=== PATIENT | female | born 1935 | race Caucasian/White ===

== ENCOUNTER 2016-07-20 15:41 | Inpatient (IN) | payer OTHER ==
[~2016-07-20] VITALS: Ht 160 cm; Wt 84.0 kg
[~2016-07-20 15:41] MED LIST: ALPRAZOLAM0.5 MG PO; ASPIR 8181 M1 PO; ATORVASTATIN CA40 MG; CHILD ASPIRIN81 M1 PO; CIPRO500 MG PO; CIPROFLOXACIN500 M1 PO; CITALOPRAM HBR10 MG PO; CRESTOR10 MG PO; FENOFIBRATE160 M1 PO; GLIPIZIDE10 M1 PO; GLUCOPHAGE500 M1 G-TUBE; HUMULIN N SC; HUMULIN N100 UNIT/2 SC; IRON325 MG PO; KEFLEX500 MG PO; LASIX40 MG PO; LEVEMIR FL100 UNITS/ SQ; LEVEMIR100 UNIT/2 SC; LEVOTHYROXINE125 MCG PO; LIPITOR40 MG PO; LISINOPRIL2.5 MG PO; PRILOSEC20 MG PO; PROAIR HFA8.5 GM IH; SYNTHROID150 MCG PO; TRAZODONE HCL150 MG PO; UNABLE TO OBTAIN; ZAFIRLUKAST20 M1 PO
[2016-07-20 16:40] LABS: HEMATOCRIT 35.2 % (36.0-46.0); MCH 25.6 PG (29.0-34.0); MCHC 32.1 G/DL (30.0-36.0); MCV 79.8 FL (83-99); MEAN PLAT.VOLUME 11.3 uM^3 (9.5-12.4); PLATELET COUNT 216 K/uL (156-360); RBC DIS.WIDTH-CV 15.4 % (11.8-14.6); RBC DIS.WIDTH-SD 43.9 % (39-53); RED BLOOD COUNT 4.41 M/uL (3.80-5.20); WHITE BLOOD COUNT 18.2 K/uL (4.1-10.2)
[2016-07-20 16:46] LABS: CARBON DIOXIDE (BICARBONATE) 24.5 MEQ/L (20-31)
[2016-07-20 16:52] LABS: CHLORIDE 104 mEq/L (99-109); POTASSIUM 3.9 mEq/L (3.7-5.4); SODIUM 137 mEq/L (136-147)
[2016-07-20 16:53] LABS: GLUCOSE 282 mg/dL (70-99)
[2016-07-20 16:55] LABS: ANION GAP 14 MEQ/L (2-14)
[2016-07-20 16:57] LABS: GFR ESTIMATE (CALCULATED) 29 mL/min/
[2016-07-20 16:58] LABS: UREA NITROGEN (BUN) 36 mg/dL (9-23)
[2016-07-20 17:04] LABS: TROP-I INTERPRETATION NEGATIVE; TROPONIN-I 0.01 ng/mL (0.0-0.30)
[2016-07-20] MEDS ORDERED: LISINOPRIL2.5 MG PO (19:41)
[2016-07-20] MEDS ORDERED: KEFLEX500 MG PO (19:41)
[2016-07-20] MEDS ORDERED: HUMULIN N100 UNIT/2 SC (19:42)
[2016-07-20] MEDS ORDERED: LEVO-T125 MCG PO (19:43)
[2016-07-20] MEDS ORDERED: LEVEMIR FL100 UNIT/1 SC (19:43)
[2016-07-20] MEDS ORDERED: LEVOTHYROXINE125 MCG PO (19:44)
[2016-07-20] MEDS ORDERED: ZAFIRLUKAST20 M1 PO (19:44)
[2016-07-20] MEDS ORDERED: PROAIR HFA8.5 GM IH (19:44)
[2016-07-20] MEDS ORDERED: LIPITOR40 MG PO (19:45)
[2016-07-20] MEDS ORDERED: FENOFIBRATE160 M1 PO (19:45)
[2016-07-20] MEDS ORDERED: PRILOSEC20 MG PO (19:45)
[2016-07-20] MEDS ORDERED: LO-DOSE ASPIRIN81 M1 PO (19:45)
[2016-07-20] MEDS ORDERED: FERROUS SULFAT325 MG PO (19:46)
[2016-07-20] MEDS ORDERED: ANTIVERT12.5 MG PO (19:46)
[2016-07-20 22:01] LABS: ALKALINE PHOSPHATASE 60 IU/L (3-129)
[2016-07-20 22:03] LABS: DIRECT BILIRUBIN 0.3 mg/dL (0.0-0.3)
[2016-07-20 22:04] LABS: TOTAL BILIRUBIN 0.4 mg/dL (0.0-1.0)
[2016-07-21 02:09] LABS: ADD MIUA? YES; BILIRUBIN NEGATIVE; BLOOD LARGE; COLOR DK YELLOW ((YELLOW)); GLUCOSE (STRIP) >=1000; KETONES TRACE; LEUKOCYTES MODERATE; NITRITE NEGATIVE; PROTEIN (STRIP) 100; SPECIFIC GRAVITY 1.023 (1.000-1.030); UROBILINOGEN 0.2 MG/DL (0.2-1.0)
[2016-07-21 02:36] LABS: WHITE BLOOD CELLS TNTC /HPF (0-5)
[2016-07-21 02:37] LABS: BACTERIA 3+; CASTS NONE SEEN /LPF; CRYSTALS NONE SEEN; MUCUS 1+; UCUL ADDED? YES
[2016-07-21 02:38] LABS: EPITHELIAL CELLS 3+
[2016-07-21 03:12] LABS: INFLUENZA A VIRAL ANTIGEN POSITIVE; INFLUENZA B VIRAL ANTIGEN NEGATIVE
[2016-07-21 06:17] LABS: HEMATOCRIT 31.8 % (36.0-46.0); MCH 25.7 PG (29.0-34.0); MCHC 32.1 G/DL (30.0-36.0); MCV 80.1 FL (83-99); MEAN PLAT.VOLUME 11.6 uM^3 (9.5-12.4); PLATELET COUNT 197 K/uL (156-360); RBC DIS.WIDTH-SD 42.5 % (39-53); RED BLOOD COUNT 3.97 M/uL (3.80-5.20); WHITE BLOOD COUNT 12.9 K/uL (4.1-10.2)
[2016-07-21 06:24] LABS: CHLORIDE 103 mEq/L (99-109); POTASSIUM 3.6 mEq/L (3.7-5.4); SODIUM 135 mEq/L (136-147)
[2016-07-21 06:25] LABS: EOSINOPHIL (%) 0.1 % (0-5); IMMATURE GRANULOCYTE (%) 0.3 % (0.0-0.7); IMMATURE GRANULOCYTE COUNT 0.4 K/uL; LYMPHOCYTE COUNT 4.5 K/uL (1.0-2.8); MONOCYTE COUNT 0.4 K/uL (0-0.8); NEUTROPHIL (%) 61.4 % (45-76); NEUTROPHIL COUNT 7.9 K/uL (1.8-6.4)
[2016-07-21 06:26] LABS: GLUCOSE 294 mg/dL (70-99)
[2016-07-21 06:27] LABS: ANION GAP 14 MEQ/L (2-14)
[2016-07-21 06:30] LABS: GFR ESTIMATE (CALCULATED) 38 mL/min/
[2016-07-21 06:31] LABS: UREA NITROGEN (BUN) 28 mg/dL (9-23)
[2016-07-21 07:12] LABS: POINT-OF-CARE METER ID UU13113702
[2016-07-21 07:20] LABS: INTERNAL CONTROL VALID? YES
[2016-07-21 07:21] LABS: INTERNAL CONTROL VALID? YES
[2016-07-21 16:00] VITALS: BP 121/57
[2016-07-21 16:35] VITALS: BP 121/57
[2016-07-21 20:20] VITALS: BP 130/62
[2016-07-22] VITALS: BP 111/56
[2016-07-22 04:00] VITALS: BP 134/62
[2016-07-22 06:23] LABS: EOSINOPHIL (%) 0.3 % (0-5); HEMATOCRIT 29.2 % (36.0-46.0); IMMATURE GRANULOCYTE (%) 0.3 % (0.0-0.7); LYMPHOCYTE COUNT 4.2 K/uL (1.0-2.8); MCH 25.1 PG (29.0-34.0); MCHC 31.2 G/DL (30.0-36.0); MCV 80.7 FL (83-99); MEAN PLAT.VOLUME 11.4 uM^3 (9.5-12.4); MONOCYTE (%) 3.8 % (3-12); MONOCYTE COUNT 0.4 K/uL (0-0.8); NEUTROPHIL (%) 57.7 % (45-76); NEUTROPHIL COUNT 6.5 K/uL (1.8-6.4); PLATELET COUNT 212 K/uL (156-360); RBC DIS.WIDTH-CV 15.1 % (11.8-14.6); RBC DIS.WIDTH-SD 44.8 % (39-53); RED BLOOD COUNT 3.62 M/uL (3.80-5.20); WHITE BLOOD COUNT 11.2 K/uL (4.1-10.2)
[2016-07-22 06:55] LABS: GLUCOSE 246 mg/dL (70-99); POTASSIUM 3.8 MEQ/L (3.7-5.4); SAMPLE HEMOLYSIS CHECK 0; SAMPLE ICTERIC CHECK 0; SAMPLE LIPEMIA CHECK 0; UREA NITROGEN (BUN) 14 mg/dL (9-23)
[2016-07-22 06:58] LABS: GFR ESTIMATE (CALCULATED) > 59 mL/min/
[2016-07-22 07:17] LABS: ANION GAP 13 MEQ/L (2-14); CHLORIDE 107 MEQ/L (99-109); SODIUM 139 MEQ/L (136-147)
[2016-07-22 08:28] VITALS: BP 146/64
[2016-07-22 12:39] LABS: POINT-OF-CARE METER ID UU14149397
[2016-07-22 16:26] VITALS: BP 129/60
[2016-07-22 19:50] VITALS: BP 151/67
[2016-07-22 23:18] VITALS: BP 143/65
[2016-07-23 04:15] VITALS: BP 138/67
[2016-07-23 04:59] LABS: HEMATOCRIT 28.1 % (36.0-46.0); MCH 24.9 PG (29.0-34.0); MCV 80.5 FL (83-99); MEAN PLAT.VOLUME 10.9 uM^3 (9.5-12.4); PLATELET COUNT 251 K/uL (156-360); RBC DIS.WIDTH-CV 14.9 % (11.8-14.6); RBC DIS.WIDTH-SD 41.9 % (39-53); RED BLOOD COUNT 3.49 M/uL (3.80-5.20); WHITE BLOOD COUNT 12.3 K/uL (4.1-10.2)
[2016-07-23 05:01] LABS: EOSINOPHIL (%) 0.4 % (0-5); EOSINOPHIL COUNT 0.1 K/uL (0-0.3); IMMATURE GRANULOCYTE (%) 0.2 % (0.0-0.7); IMMATURE GRANULOCYTE COUNT 0.3 K/uL; LYMPHOCYTE COUNT 4.2 K/uL (1.0-2.8); MONOCYTE (%) 4.7 % (3-12); MONOCYTE COUNT 0.6 K/uL (0-0.8); NEUTROPHIL (%) 60.3 % (45-76); NEUTROPHIL COUNT 7.4 K/uL (1.8-6.4)
[2016-07-23 05:18] LABS: CHLORIDE 108 mEq/L (99-109); POTASSIUM 4.1 mEq/L (3.7-5.4); SODIUM 139 mEq/L (136-147)
[2016-07-23 05:19] LABS: GLUCOSE 261 mg/dL (70-99)
[2016-07-23 05:21] LABS: ANION GAP 11 MEQ/L (2-14)
[2016-07-23 05:23] LABS: GFR ESTIMATE (CALCULATED) > 59 mL/min/
[2016-07-23 05:24] LABS: UREA NITROGEN (BUN) 7 mg/dL (9-23)
[2016-07-23 06:53] LABS: POINT-OF-CARE METER ID UU14149397
[2016-07-23 07:42] VITALS: BP 158/70
[2016-07-23 10:30] LABS: ANION GAP 11 MEQ/L (2-14); CHLORIDE 105 MEQ/L (99-109); GFR ESTIMATE (CALCULATED) > 59 mL/min/; GLUCOSE 285 mg/dL (70-99); POTASSIUM 3.6 MEQ/L (3.7-5.4); SAMPLE HEMOLYSIS CHECK 0; SAMPLE ICTERIC CHECK 0; SAMPLE LIPEMIA CHECK 0; SODIUM 138 MEQ/L (136-147); UREA NITROGEN (BUN) 8 mg/dL (9-23)
[2016-07-23 11:50] LABS: POINT-OF-CARE METER ID UU14149397
[2016-07-23 15:50] VITALS: BP 149/66
[2016-07-23 16:53] LABS: POINT-OF-CARE METER ID UU14149397
[2016-07-23 22:23] LABS: POINT-OF-CARE METER ID UU14149397
[2016-07-23 23:26] VITALS: BP 132/60
[2016-07-24 06:09] LABS: MCH 25.6 PG (29.0-34.0); MCHC 31.7 G/DL (30.0-36.0); MCV 80.6 FL (83-99); MEAN PLAT.VOLUME 10.9 uM^3 (9.5-12.4); PLATELET COUNT 312 K/uL (156-360); RBC DIS.WIDTH-CV 14.9 % (11.8-14.6); RBC DIS.WIDTH-SD 43.8 % (39-53); WHITE BLOOD COUNT 12.6 K/uL (4.1-10.2)
[2016-07-24 06:43] LABS: ANION GAP 9 MEQ/L (2-14); CHLORIDE 105 MEQ/L (99-109); GFR ESTIMATE (CALCULATED) > 59 mL/min/; GLUCOSE 183 mg/dL (70-99); POTASSIUM 3.3 MEQ/L (3.7-5.4); SAMPLE HEMOLYSIS CHECK 0; SAMPLE ICTERIC CHECK 0; SAMPLE LIPEMIA CHECK 0; SODIUM 140 MEQ/L (136-147); UREA NITROGEN (BUN) 7 mg/dL (9-23)
[2016-07-24 06:51] LABS: POINT-OF-CARE METER ID UU14149397
[2016-07-24 08:02] VITALS: BP 138/72
[2016-07-24 16:38] VITALS: BP 140/74
[2016-07-24 23:26] VITALS: BP 142/63
[2016-07-25 06:10] LABS: HEMATOCRIT 27.8 % (36.0-46.0); MCH 25.1 PG (29.0-34.0); MCHC 30.9 G/DL (30.0-36.0); MEAN PLAT.VOLUME 10.8 uM^3 (9.5-12.4); PLATELET COUNT 318 K/uL (156-360); RBC DIS.WIDTH-CV 14.9 % (11.8-14.6); RED BLOOD COUNT 3.43 M/uL (3.80-5.20); WHITE BLOOD COUNT 9.8 K/uL (4.1-10.2)
[2016-07-25 06:39] LABS: ANION GAP 9 MEQ/L (2-14); CHLORIDE 106 MEQ/L (99-109); GFR ESTIMATE (CALCULATED) > 59 mL/min/; GLUCOSE 157 mg/dL (70-99); POTASSIUM 3.2 MEQ/L (3.7-5.4); SAMPLE HEMOLYSIS CHECK 0; SAMPLE ICTERIC CHECK 0; SAMPLE LIPEMIA CHECK 0; SODIUM 141 MEQ/L (136-147); UREA NITROGEN (BUN) 6 mg/dL (9-23)
[2016-07-25 07:07] LABS: POINT-OF-CARE METER ID UU14149397
[2016-07-25 07:41] LABS: MAGNESIUM 1.5 mg/dl (1.3-2.7)
[2016-07-25 08:18] VITALS: BP 149/70
[2016-07-25 12:17] LABS: POINT-OF-CARE METER ID UU14149397
[2016-07-25 15:50] VITALS: BP 126/70
[2016-07-25 16:54] LABS: POINT-OF-CARE METER ID UU14149397
[2016-07-25 22:09] LABS: POINT-OF-CARE METER ID UU14149397
[2016-07-26] VITALS: BP 128/62
[2016-07-26 03:42] VITALS: BP 126/77
[2016-07-26 08:04] VITALS: BP 152/92
[2016-07-26 10:59] LABS: ANION GAP 11 MEQ/L (2-14); CHLORIDE 104 MEQ/L (99-109); GFR ESTIMATE (CALCULATED) > 59 mL/min/; GLUCOSE 135 mg/dL (70-99); POTASSIUM 3.3 MEQ/L (3.7-5.4); SAMPLE HEMOLYSIS CHECK 0; SAMPLE ICTERIC CHECK 0; SAMPLE LIPEMIA CHECK 0; SODIUM 141 MEQ/L (136-147); UREA NITROGEN (BUN) 5 mg/dL (9-23)
[2016-07-26 11:45] LABS: POINT-OF-CARE METER ID UU14149397
[2016-07-26 12:01] VITALS: BP 153/69
[2016-07-26] MEDS ORDERED: GUAIFENESIN WI120 M1 PO (13:03)
[2016-07-26] MEDS ORDERED: TRAMADOL HCL50 MG PO (13:03)
[2016-07-26] MEDS ORDERED: DURICEF1 GM PO (13:03)
[2016-07-26 15:23] VITALS: BP 166/70
== END 2016-07-26 16:40 | DRG 871 ==
LOC: EME 15:41 → EDOF 21:10 → 3EAST 21:10
PROVIDERS: Emergency Medicine; Hospitalist; Physician Assistant; Student in an Organized Health Care Education/Training Program
DX: A41.01 Sepsis due to Methicillin susceptible Staphylococcus aureus (principal); J15.211 Pneumonia due to Methicillin susceptible Staphylococcus aureus; J44.1 Chronic obstructive pulmonary disease with (acute) exacerbation; J09.X2 Influenza due to identified novel influenza A virus with other respiratory manifestations; N17.9 Acute kidney failure, unspecified; N39.0 Urinary tract infection, site not specified; I12.9 Hypertensive chronic kidney disease with stage 1 through stage 4 chronic kidney disease, or unspecified chronic kidney disease; E03.9 Hypothyroidism, unspecified; N18.3 Chronic kidney disease, stage 3 (moderate); E11.65 Type 2 diabetes mellitus with hyperglycemia; D50.9 Iron deficiency anemia, unspecified; E78.5 Hyperlipidemia, unspecified; E11.22 Type 2 diabetes mellitus with diabetic chronic kidney disease; B95.61 Methicillin susceptible Staphylococcus aureus infection as the cause of diseases classified elsewhere; Z87.891 Personal history of nicotine dependence; Z88.2 Allergy status to sulfonamides; Z91.013 Allergy to seafood; Z88.8 Allergy status to other drugs, medicaments and biological substances; E87.6 Hypokalemia
CPT/HCPCS: 36600; 71010; 71020; 80048; 80048 91; 80076; 81003; 82550; 82553; 82803; 82948; 83605; 83690; 83735; 83880; 84484; 85025; 85025 91; 85027; 87040; 87070; 87077; 87086; 87186; 87205; 87449; 87502; 87651 90; 87801; 93005; 94640; 94640 76; 94799; 99202; 99281; 99284; 99285; J0456; J0690; J0696; J1644; J1815; J3370; J3475; J7030; J7040; J7050

== ENCOUNTER 2017-05-15 18:03 | Emergency (ER) | payer OTHER ==
[~2017-05-15] VITALS: Ht 161.3 cm; Wt 83.8 kg
[~2017-05-15 18:03] MED LIST changes: +ANTIVERT12.5 MG PO; +DURICEF1 GM PO; +FERROUS SULFAT325 MG PO; +GUAIFENESIN WI120 M1 PO; +LEVEMIR FL100 UNIT/1 SC; +LEVO-T125 MCG PO; +LO-DOSE ASPIRIN81 M1 PO; +TRAMADOL HCL50 MG PO
[2017-05-15 18:07] VITALS: BP 169/101
== END 2017-05-15 21:10 | disposition left against medical advice (07) ==
LOC: EME 18:03
DX: R79.9 Abnormal finding of blood chemistry, unspecified (principal); Z53.21 Procedure and treatment not carried out due to patient leaving prior to being seen by health care provider
CPT/HCPCS: 80048 91; 81003; 85027